=== PATIENT | female | born 1940 | race Caucasian/White ===

== ENCOUNTER 2019-05-17 13:08 | Inpatient (IN) | payer MEDICARE, OTHER ==
[~2019-05-17] VITALS: Ht 162.6 cm; Wt 73.5 kg
[~2019-05-17 13:08] MED LIST: ASPIRIN EC81 MG PO; ATENOLOL25 MG PO; CALCIUM 600 +1 EAC6 PO; DOK250 MG PO; FLUOXETINE HCL20 MG PO; HYDROCODON-ACE1 EA11 PO; MIRALAX17 GM PO; NAPROXEN500 MG PO; NASACORT AQ16.5 GM NS; NORCO 5-325 TA1 EACH PO; OMEPRAZOLE20 MG PO; ONDANSETRON HCL4 MG PO; OXYCODONE HCL5 MG PO; PREDNISONE20 MG PO; PROZAC10 MG; SIMVASTATIN40 MG PO; SPIRONOLACTONE1 EACH PO; TYLENOL WITH C1 EACH; VALTREX1000 MG PO; XARELTO10 MG PO; ZOCOR10 MG PO
[2019-05-18] MEDS ORDERED: IRON18 MG PO (12:22)
[2019-05-18] MEDS ORDERED: VITAMIN C500 M4 PO (12:22)
[2019-05-18] MEDS ORDERED: MULTIVITAMINS1 EAC8 PO (12:23)
--- NOTE | 2019-05-18 13:10 | NUR ---
PATIENT HERE TODAY FOR PREADMISSION APPOINTMENT. SHE IS SCHEDULED ON 05/29/19 FOR A LEFT TOTAL KNEE ARTHROPLASTY. IT IS RECALLED SHE HAS HAD A RIGHT TOTAL KNEE REPLACEMENT IN THE PAST. SHE LIVES IN [place] AND IS PLANNING ON GOING TO [facility] SWING BED WHEN SHE IS DISCHARGED FROM THE HOSPITAL. HER PASSED IN JUNE AND SHE LIVES ALONE. SHE DOES HAVE FAMILY CLOSE BY TO HELP HER ONCE SHE RETURNS HOME. HER DAUGHTER KARINA WILL BE HERE TO TRANSPORT HER WHEN SHE IS DISCHARGED. THERE ARE 4 STEPS INTO THE HOME WITH HAND RAILES ON BOTH SIDES. THERE ARE NO STEPS INSIDE THE HOME. THERE IS A WALK IN SHOWER AND SHE BELIVES THERE IS A SHOWER BENCH FROM WHEN HER NEEDED ONE. SHE HAS A FRONT WHEELED WALKER AND WAS ASKED TO BRING IT WITH HER TO THE HOSPITAL. THIS INFORMATION WILL BE SENT TO DR BACA OFFICE AND CASE MANAGEMENT FOR FURTHER FOLLOW UP.
--- NOTE | 2019-05-29 08:52 | NUR ---
05/29/19 0852 Nery Murphy 0834- PT ARRIVES TO PACU EASILY AROUSABLE TO VOICE, FALLS TO SLEEP WITHOUT STIMULATION. RESP EVEN AND UNLABORED. OXYGEN SAT HIGH 90'S TO 100% ON 6L VIA MASK. PT HAS A VALDO DRESSING IN PLACE THAT IS FLASHING GREEN AND AN ON-Q PUMP INFUSING AT 2ML/HR WITH THE CLAMP REMOVED. 0848- OXYGEN TITRATED OFF. 0850- CRYOCUFF PLACED TO PT'S LEFT KNEE WITH DRESSING IN BETWEEN SKIN AND CRYOCUFF.
--- NOTE | 2019-05-29 09:01 | OR ---
[facility] [address] [place], [place] [address] Signed DATE OF OPERATION: 05/29/2019 SURGEON: Blu Ozuna MD PREOPERATIVE DIAGNOSIS: Degenerative joint disease, left knee. POSTOPERATIVE DIAGNOSIS: Degenerative joint disease, left knee. PROCEDURE PERFORMED: Left total knee arthroplasty with computer navigation, implantation of adductor canal block. GAS PROCESSING PLANT OPERATOR: Marisabel Ayala PA-C. Marisabel was present and critical for all portions of procedure. ANESTHESIA: Spinal. BLOOD LOSS: 175. IMPLANTS: Jaylen Triathlon size 3, 11 mm insert and 32 mm patella. BRIEF HISTORY: Olivia is a 79-year-old female with worsening of pain in her left knee. She had undergone prior right total knee with good results and wished to proceed with the left. Risks, benefits, and alternatives were discussed and she elected to proceed. DESCRIPTION OF PROCEDURE: Once consent was obtained, she was taken to the operating room. After adequate anesthesia, she was placed on operating room table. All downside pressure points well padded. Hip bump was placed on the left and the left leg was prepped and draped in the standard sterile fashion. The knee was approached through a standard midline incision anteriorly, taken through skin and subcutaneous tissue. All bleeders were cauterized as we went. The median parapatellar arthrotomy was performed. The infrapatellar fat pad was excised. The MCL was elevated with a sleeve around the posteromedial corner. The Electronically Signed By: BLU OZUNA MD 05/29/19 0901 PATIENT NAME: OLIVIA WHITING OPERATIVE REPORT DATE OF : 42 REPORT #: [id number] PHYSICIAN: BLU OZUNA MD PCP: RICARDO MARTEL MD REPORT IS CONFIDENTIAL AND NOT TO BE RELEASED WITHOUT AUTHORIZATION [facility] [address] [place], [place] [address] Signed knee was flexed. The anterior horns of menisci were transected as was the ACL. The medial meniscus was pretty much gone. The navigation guide was pinned to the distal femur. The femur was registered with the computer. The distal femoral cutting guide was then pinned in neutral alignment and distal femoral cut was made. The distal femur sized to a 3. This was confirmed using the bat wing. The size 3 cutting block was then pinned in line with epicondylar axis. The anterior, posterior, and chamfer cuts were made. All osteophytes were removed as we went. The attention was then turned to the proximal tibia. It was cleared of meniscal tissue and the navigation guide was pinned and the tibia was registered with the computer. The cutting block was then pinned to take 4 mm off the posteromedial corner. This was pinned in anatomical axis and alignment. The cut was made with care taken to protect the patellar tendon and MCL. The bone was excised as were any soft tissue remnants. Posterior osteophytes were removed off the femur. The flexion-extension gaps were sized and found to be symmetric at 11 mm. The trials were positioned. Knee was taken through range of motion and found to be quite stable. There was good posterior drawer. The patella was cut sized and drilled for a 32 patella. The distal femoral drill holes were made and proximal tibia was finished using the keel punch. Her bone was fairly soft, so we elected to go with a hybrid knee implant. The proximal tibia was then pulse lavaged, packed with dry Ray-Chace. The cement was mixed and reached proper consistency, it was placed on the components in the tibia. The tibia was impacted in position first followed by the polyethylene. All excess cement was removed. The femur was then impacted in position and the knee was extended and nicely loaded. The patella was clamped into position. Any overflow was removed. The cement was allowed to harden. Once it hardened sufficiently, the knee was flexed and remaining excess was removed. The periarticular soft tissues were injected with 100 mL of ropivacaine and Toradol mixture. The On-Q pain pump was then placed in the adductor canal percutaneously from the suprapatellar pouch. The arthrotomy was then closed using #2 Stratafix, 0 Stratafix for the subcutaneous tissue. Because there was still a fair amount of oozing from the bone and surrounding soft tissues, we did inject 1 g of tranexamic acid intra-articularly. The wound was then closed with ZipLine dressing and VALDO wound VAC. She was awakened and taken to the recovery room in satisfactory condition. All sponge, needle, and instrument counts were correct. Blu Ozuna MD BA/MODL /[id number] Electronically Signed By: BLU OZUNA MD 05/29/19 0901 PATIENT NAME: OLIVIA WHITING OPERATIVE REPORT DATE OF : 42 REPORT #: [id number] PHYSICIAN: BLU OZUNA MD PCP: RICARDO MARTEL MD REPORT IS CONFIDENTIAL AND NOT TO BE RELEASED WITHOUT AUTHORIZATION [facility] [address] [facility] [place], [place] [address] Signed Copies: ~ Electronically Signed By: BLU OZUNA MD 05/29/19 0901 PATIENT NAME: OLIVIA WHITING OPERATIVE REPORT DATE OF : 42 REPORT #: [id number] PHYSICIAN: BLU OZUNA MD PCP: RICARDO MARTEL MD REPORT IS CONFIDENTIAL AND NOT TO BE RELEASED WITHOUT AUTHORIZATION
--- NOTE | 2019-05-29 09:30 | NUR ---
PT TO FLOOR VIA BED WITH COCO ANNE. PT AWAKE. FAMILY IN ROOM. DENIES CONCERNS OR PAIN. ABLE TO WIGGLE FEET. EDUCATED ON DRESSING, SURG, MEDS AND ON-Q PUMP.
--- NOTE | 2019-05-29 10:30 | NUR ---
SPOKE WITH PATIENT IN ROOM. PATIENT AWAKE, ORIENTED. STATES SHE LIVES ALONE. SHE IS FOR ABOUT A YEAR. SHE HAS WALKER, SHE BROUGHT IT WITH HER, IS IN ROOM. SHE HAS WALK-IN SHOWER AND SHOWER BENCH. SHE HAS 4 STEPS WITH RAIL TO HOUSE. [place], INCLUDING A DAUGHTER WHO IS AN AIDE AT [facility]. SHE STATES HER PLAN IS TO GO TO [facility] FOR SWING BED STAY AT DISCHARGE. STATES HER DAUGHTER IS TALKING TO THEM. DISCUSSED THAT SHE IS MEDICARE PRIMARY AND SHE MUST HAVE INPATIENT 3-NIGHT STAY FOR BENEFITS TO START FOR SKILLED STAY. DISCUSSED THAT SHE IS OUTPATIENT [facility] AT THIS TIME. WE DISCUSSED THAT PT WILL SEE HER AND THEN WE WILL SEE HOW THINGS ARE GOING AND WE WILL HELP HER MAKE DECISIONS ON DISCHARGE. SHE IS GRATEFULL FOR THE INFORMATION. WE DISCUSSED HOME HEALTH, AND OTHER OPTION OF HIRING HELP FOR A WHILE IF NEEDED. WILL CONTINUE TO FOLLOW.
--- NOTE | 2019-05-29 10:51 | NUR ---
ADMINISTERED SCHEDULED MEDS. PT AWAKE AND STATES HER PAIN IS COMFORTABLE FOR HER AT 5\10. NO DRAINAGE NOTED. CYRO IN PLACE. VS STABLE. CALL LIGHT IN REACH. NO NAUSEA, ORDERED LUNCH.
--- NOTE | 2019-05-29 13:06 | NUR ---
resident in bed, ate lunch 93%. alert, denied pain, stated "i have any pain, i feel good'.
--- NOTE | 2019-05-29 13:50 | NUR ---
PATIENT RESTING IN BED. PHYSICAL THERAPIST IN ROOM. VITAL SIGNS DONE BY RN. I&O DONE. PATIENT DID NOT VOID DURING THIS PERIOD. RN NOTIFIED. ICE WATER GIVEN. CALL LIGHT WITHIN REACH. NO OTHER NEEDS AT THIS TIME
--- NOTE | 2019-05-29 14:09 | NUR ---
PT ALERT, ORIENTED AND SUPPORTED BY HER DAUGHTER KARINA. SHE IS PLEASANT, HAS HAD OTHER KNEE REPLACED ALSO. PT REQUESTED PRAYER, WILL FOLLOW NEEDED
--- NOTE | 2019-05-29 15:42 | NUR ---
CHECKED ON PT. STATES SHE IS NOT HAVING ANY PAIN AND IS DOING SOME OF HER EXERCISES IN BED FROM HER PT BOOK. DENIES CONCERNS.
--- NOTE | 2019-05-29 16:44 | NUR ---
PT IN BED, IN A GOOD MOOD AND SPIRIT. DENIED PAIN OR ANY DISCOMFORT. VSS. AFEBRILE.
[2019-05-29] MEDS ORDERED: HYDROCODON-ACE1 EA10 PO (17:04)
[2019-05-29] MEDS ORDERED: AIRBORNE GUMMI1 EACH PO (17:05)
--- NOTE | 2019-05-29 17:05 | NUR ---
MED REC COMPLETE
--- NOTE | 2019-05-29 17:12 | NUR ---
PATIENT RESTING IN BED. VITAL SIGNS AND I&O DONE. SETS UP TABLE FOR DINNER. ICE WATER GIVEN. CALL LIGHT WITHIN REACH. NO OTHER NEEDS AT THIS TIME
--- NOTE | 2019-05-29 18:12 | NUR ---
PATIENT'S VSS, AFEBRILE. DENIED PAIN DURING THIS SHIFT. WORKED WITH PHYSICAL THERAPY, ATE LUNCH AND DINNER, GOOD APPETITE. nO NAUSEA REPORTED. dRESSING IS DRY, CLEAN, INTACT. VOIDED. BED IN LOW POSITION, CALL LIGHT IN REACH.
--- NOTE | 2019-05-29 19:20 | NUR ---
REPORT RECEIVED FROM DAY SHIFT RN. PT LYING IN BED, ALERT AND ORIENTED. DENIES PAIN OR NAUSEA. LEFT KNEE DRESSING CDI, VALDO FLASHING GREEN. ON-Q PUMP INFUSING AT 2 ML/HR. SCD'S/TEDS/HP IN PLACE. CPOX IN PLACE, SATS 98% ON RA. DENIES NEEDS AT THIS TIME. CALL LIGHT IN REACH.
--- NOTE | 2019-05-29 21:40 | NUR ---
EVENING ASSESSMENT COMPLETE. SCDHEDULED MEDS GIVEN WITHOUT ISSUE. PT DENIES PAIN OR NAUSEA. UP TO BR WITH FWW AND SBA. PT BECAME A LITTLE "WOBBLY" IN THE BATHROOM WHEN TRYING TO PULL UNDERWEAR DOWN. BACK TO BED, KRISTEN WELL. SCD'S/TEDS/HP IN PLACE. FRESH ICE TO CRYO. BED ALARM ON FOR SAFETY. REMINDED PT TO USE NURSE CALL LIGHT FOR ASSISTANCE.
--- NOTE | 2019-05-29 23:20 | NUR ---
CPOX READS 85% ON RA, PT APPEARS TO HAVE MOMENTS OF SLEEP APNEA. PT AROUSES EASILY. WHILE AWAKE SATS ARE 98% ON RA. OXYGEN 1L/NC PLACED WHILE SLEEPING.
--- NOTE | 2019-05-30 00:15 | NUR ---
SPO2 98% ON 1L/NC
--- NOTE | 2019-05-30 03:00 | NUR ---
SCHEDULED MEDS GIVEN. PT DENIES PAIN. UP TO BR WITH FWW AND SBA. PT AGAIN BECAME UNSTEADY IN THE BATHROOM. BACK TO BED, KRISTEN WELL. SCD'S/FÁTIMA'S/HP IN PLACE. FRESH ICE TO CRYO. VALDO FLASHING GREEN. ON-Q INFUSING AT 2 ML/HR. PT DENIES FURTHER NEEDS AT THIS TIME. BED ALARM ON, CALL LIGHT IN REACH.
--- NOTE | 2019-05-30 05:44 | NUR ---
PT SLEPT WELL. ALERT AND ORIENTED, USES CALL LIGHT. DENIES PAIN OR NAUSEA. UP TO BR WITH SBA AND FWW. DUE TO UNSTEADINESS REQUIRES CLOSE SBA. VOIDING QS. IV ABX. SCD'S/FÁTIMA'S/HP/CRYO. DRESSING CDI, VALDO FLASHING GREEN. ON-Q INFUSING AT 2ML/HR. PLACED ON 1L/NC DURING THE NIGHT FOR DECREASED OXYGEN SATURATIONS.
--- NOTE | 2019-05-30 06:30 | NUR ---
SCHEDULED MEDS GIVEN. IV INFILTRATED AT THE START OF IV ABX. IV DC'D WNL, TIP IN TACT. PT UP TO BR WITH SBA, GAIT STEADY. BACK TO BED, KRISTEN WELL. FRESH ICE TO CRYO. VALDO FLASHING GREEN. PT DENIES OTHER NEEDS AT THIS TIME. CALL LIGHT IN REACH.
--- NOTE | 2019-05-30 07:50 | NUR ---
PT UP TO RECLINER FOR BREAKFAST, NEW IV SITE STARTED AFTER IV INFILTRATED FOR IFRAH INSTRUMENT MECHANIC WEAPONS SYSTEMPLATE STACKER HAND EARLY THIS AM. PT REPORTS NO PAIN OR NAUSEA. CRYO CUFF IN PLACE WITH FRESH ICE. TEDS ON.
--- NOTE | 2019-05-30 08:00 | NUR ---
PATIENT AMBULATED TO CHAIR FROM BATHROOM. PATIENT WASHED HANDS, FACE AND BRUSHED TEETH. PATIENT REFUSED BATH AT THIS TIME AND STATED SHE WILL WAIT UNTIL TOMMOROW. FRESH ICE WATER GIVEN. NO OTHER NEEDS AT THIS TIME. CALL BUTTON IN REACH.
--- NOTE | 2019-05-30 09:30 | NUR ---
LEFT MESSAGE FOR DAUGHTER KARINA [phone] TO DISCUSS DISCHARGE PLAN. CALLED [facility] AND SPOKE WITH THEM TO SEE IF THEY HAVE ANY PLANS FOR SWING BED STAY FOR PATIENT. THEY ARE AWARE OF PATIENT IN COMMUNITY, BUT DO NOT HAVE ANY PLAN AT THIS TIME FOR THIS PENDING.
--- NOTE | 2019-05-30 10:59 | NUR ---
PT SITTING UP IN RECLINER, VISITOR IN ROOM, SHE REPORTS SHE WORKED WITH PHYSICAL THERAPY THIS AM AND DID STAIRS, NO PAIN NO NAUSEA. SHE SAID NO REAL INCREASE IN PAIN WITH ACTIVITY.
--- NOTE | 2019-05-30 11:03 | NUR ---
PATIENT IN CHAIR, VISITOR IN ROOM. CALL LIGHT IN REACH. NO FURTHER NEEDS AT THIS TIME.
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
--- NOTE | 2019-05-30 11:45 | NUR ---
SPOKE WITH MENG RN EDUCATOR WHO STATES SHE MET WITH PATIENT AND PATIENT IS DOING VERY WELL. THEY DISCUSSED POSSIBLE DISCHARGE PLANS AND DISCUSSED THAT SHE MAY NOT QUALIFY FOR COVERAGE FOR SNF OR SWINGBED. PATIENT IS AWARE OF MEDICARE RULES.
--- NOTE | 2019-05-30 14:26 | NUR ---
1425 PT SITTING IN CHAIR AND CALL LIGHT WITHIN REACH. MEDICATION GIVEN AND PT DENIES PAIN. ALL QUESTIONS ANSWERED.
--- NOTE | 2019-05-30 14:50 | NUR ---
RECEIVED CALL FROM DAUGHTER KARINA. DISCUSSED THAT I CALLED EARLIER TO ANSWER ANY QUESTIONS THEY HAD AND TO TALK ABOUT DISCHARGE PLAN. SHE STATES SHE TALKED WITH PT AND SHE IS DOING GREAT. WE DISCUSSED BECAUSE THINGS ARE GOING SO WELL, THAT SHE MIGHT NOT QUALIFY FOR INPATIENT STAY AND SWINGBED STAY THEY HAD INITIALLY PLANNED. 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 SHE STATES SHE IS JUST GLAD HER MOM IS DOING SO WELL. WE DISCUSSED HER MOM COULD PROBABLY QUALIFY FOR HOME HEALTH FOR AWHILE, SHE STATES THAT WOULD BE GREAT. SHE STATES THEY HAVE PLENTY OF PEOPLE WHO CAN HELP HER AT HOME, EVEN STAY WITH HER. WE DISCUSSED THAT THE PLAN WON'T BE FINAL UNTIL CLOSER TO DISCHARGE. SHE STATES UNDERSTANDING. DISCUSSED WITH HER SHE MAY MEET WITH MENG SEPULVEDA OR TRAVIS SEPULVEDA TOMORROW. CM WILL CONTINUE TO FOLLOW.
--- NOTE | 2019-05-30 17:24 | NUR ---
PT SITTING UP IN BED EATING DINNER, SHE REPORTS AN ACHE TYPE PAIN THAT COMES AND GOES. SHE SAID SHE DOES NOT FEEL LIKE SHE NEEDS ANYTHING FOR PAIN AT THIS TIME.
--- NOTE | 2019-05-30 18:11 | NUR ---
PT HAS BEEN UP TO RECLINER FOR MEALS, HAS WORKED WITH PHYSICAL THERAPY TWICE AND DID STAIRS. SHE IS STILL SLIGHTLY UNSTEADY WHEN FIRST GETTING UP OUT OF CHAIR OR BED. SHE HAS REPORTED NO PAIN AT REST, AND NO NAUSEA, TOLERATING REGUALR DIET WELL. DRESSING HAS VERY SMALL AMOUNT OF DRAINAGE NOTHING NEW THIS SHIFT.
--- NOTE | 2019-05-30 19:25 | NUR ---
REPORT RECEIVED FROM DAY SHIFT RN. PT LYING IN BED, ALERT AND ORIENTED. DENIES PAIN. LEFT KNEE DRESSING WITH SCANT AMOUNT OF SEROSANGUINEOUS DRAINAGE. VALDO FLASHING GREEN. ON-Q INFUSING AT 2ML/HR. SCD'S/FÁTIMA'S/HP/CRYO IN PLACE. DENIES NEEDS AT THIS TIME. CALL LIGHT IN REACH.
--- NOTE | 2019-05-30 20:40 | NUR ---
ASSESSMENT COMPLETE. SCHEDULED MEDS GIVEN WITHOUT ISSUE. PT DENIES PAIN. UP TO BR WITH FWW AND SBA, GAIT UNSTEADY AT TIMES. AT SINK TO DO PM CARES. BACK TO BED, KRISTEN WELL. SCD'S/FÁTIMA'S/HP IN PLACE. VS AND I&O COMPLETE. WARM BLANKET GIVEN. NO FURTHER NEEDS. CALL LIGHT IN REACH.
--- NOTE | 2019-05-30 22:10 | NUR ---
SCHEDULED ACETAMINOPHEN GIVEN. PT CONTINUES TO DENY PAIN. CMS INTACT. UP TO BATHROOM WITH FWW AND CLOSE SBA. BACK TO BED, KRISTEN WELL. SCD'S/FÁTIMA'S/HP IN PLACE. FRESH ICE TO CRYO.
--- NOTE | 2019-05-31 00:13 | NUR ---
SPOT CHECK SPO2 92-98% ON RA, HR 68. PT SNORING SOFTLY.
--- NOTE | 2019-05-31 02:30 | NUR ---
CALL LIGHT ANSWERED. 1 PA TO THE BATHROOM USING WALKER. PATIENT IS BACK IN BED. SCD, CRYO AND HEEL PROTECTOR ARE BACK ON. CALL LIGHT IN REACH. NO OTHER NEEDS AT THIS TIME.
--- NOTE | 2019-05-31 05:47 | NUR ---
PT SLEPT WELL. ALERT AND ORIENTED, USES CALL LIGHT. PAIN WELL CONTROLLED WITH SCHEDULED MEDS. LEFT KNEE DRESSING WITH SCANT AMOUNT OF DRAINAGE, UNCHANGED THIS SHIFT. VALDO FLASHING GREEN. ON-Q INFUSING AT 2ML/HR. SCD'S/TEDS/HP/CRYO. SBA WITH FWW, PT CAN BECOME UNSTEADY AT TIMES. SCOPALAMINE PATCH IN PLACE, REMOVE WEDNESDAY.
--- NOTE | 2019-05-31 06:18 | NUR ---
SBA BACK TO BED FROM RESTROOM. pt RATES PAIN 5/10 IN LEFT KNEE, SCHEDULED MEDICATION ADMINSITERED. CRYO CUFF WITH ICE IN PLACE. FÁTIMA ARROYO, SCDS, VFPs ON. CALL LIGHT IN REACH. VSS.
--- NOTE | 2019-05-31 06:46 | NUR ---
PT STATES PAIN IS 5/10 IN THE LEFT QUAD AREA. DENIES PRN AT THIS TIME, WOULD LIKE TO WAIT UNTIL CLOSER TO PHYSICAL THERAPY.
--- NOTE | 2019-05-31 07:54 | NUR ---
PT SLEEPING SOUNDLY AT TIME OF SHIFT CHANGE. APPEARS COMFORTABLE SNORING SOFTLY
[2019-05-31] MEDS ORDERED: CELECOXIB200 MG PO (10:36)
[2019-05-31] MEDS ORDERED: TYLENOL EXTRA500 MG PO (10:37)
[2019-05-31] MEDS ORDERED: GABAPENTIN300 MG PO (10:37)
[2019-05-31] MEDS ORDERED: OXYCODONE HCL5 MG PO (10:39)
--- NOTE | 2019-05-31 11:03 | NUR ---
DR BACA COATING MIXER TENDER IN TO SEE PT, DC ORDERS WRITTEN QUESTIONS ANSWERED. PT DENIES CONCERNS STATES SHE IS READY TO GO, ANTICIPATE DC AROUND 2 PM WHEN HER RIDE ARRIVES
--- NOTE | 2019-05-31 12:43 | NUR ---
DC INSTRUCTIONS REVIEWED AT [facility] PT VERBALIZES UNDERSTANDING
--- NOTE | 2019-05-31 13:00 | NUR ---
Spoke with Olivia. She plans on discharging home today. Has walker in the room. Denies use of other equipment. States son will pick her up at 2 pm. Daughter will stay tonight. Pt plans on Home Health after dc. Will send chart when orders completed to [facility] in [place].
--- NOTE | 2019-05-31 14:31 | NUR ---
PT HAD JUST FINISHED P.T. AND WAS RESTING IN CHAIR. SHE IS ALERT, ORIENTED AND EXCITED TO DC TODAY. PT DID ADMIT MINOR PAIN TODAY, BUT SEEMED TO NOT BE MUCH OF ISSUE. PT HAS LOTS OF KEEN IN HER RM AND SHE WAS VERY THANKFUL HER FAMILY AND FRIENDS REMEMBERED HER. GAVE BLESSING, WILL FOLLOW NEEDED.
--- NOTE | 2019-06-01 07:22 | NUR ---
Face sheet, progress notes, report of surgery, PT notes/eval, F2F faxed to [facility].
== END 2019-05-31 14:00 | disposition home health service (06) | DRG 470 ==
LOC: MS 05-29 05:35 → OPS 05-29 05:35 → DS 05-29 05:35 → EDSTATUS 05-29 06:45 → OPS 05-29 06:45 → DS 05-29 09:15 → MS 05-29 09:15
PROVIDERS: ADMIT Specialist
PROC: 8E0YXBZ Computer Assisted Procedure of Lower Extremity (ICD-10-PCS; 2019-05-29)
PROC: 3E0T3BZ Introduction of Anesthetic Agent into Peripheral Nerves and Plexi, Percutaneous Approach (ICD-10-PCS; 2019-05-29)
PROC: 3E0T33Z Introduction of Anti-inflammatory into Peripheral Nerves and Plexi, Percutaneous Approach (ICD-10-PCS; 2019-05-29)
PROC: 0SRD0J9 Replacement of Left Knee Joint with Synthetic Substitute, Cemented, Open Approach (ICD-10-PCS; principal; 2019-05-29 06:45)
DX: M17.12 Unilateral primary osteoarthritis, left knee (principal); G89.18 Other acute postprocedural pain; I12.9 Hypertensive chronic kidney disease with stage 1 through stage 4 chronic kidney disease, or unspecified chronic kidney disease; N18.9 Chronic kidney disease, unspecified; K21.9 Gastro-esophageal reflux disease without esophagitis; F39 Unspecified mood [affective] disorder; Z96.651 Presence of right artificial knee joint; Z79.899 Other long term (current) drug therapy; Z79.891 Long term (current) use of opiate analgesic
CPT/HCPCS: 01402; 64447; 97110; 97116; 97161; 97165; C1713; C1776; J0690; J1100; J1885; J2001; J2250; J2405; J2704; J2795; J3010; J7121; J8540